=== PATIENT | female | born 2000 | race Two or more races ===

== ENCOUNTER 2018-02-07 01:25 | Emergency (ER) | payer OTHER ==
[~2018-02-07] VITALS: Ht 154.9 cm; Wt 50.8 kg
== END 2018-02-07 06:24 | disposition home or self-care (01) ==
LOC: ER 01:25
DX: O98.511 Other viral diseases complicating pregnancy, first trimester (principal); B34.9 Viral infection, unspecified; E86.0 Dehydration; Z34.01 Encounter for supervision of normal first pregnancy, first trimester

== ENCOUNTER 2018-07-24 17:39 | Inpatient (IN) | payer OTHER ==
[~2018-07-24] VITALS: Ht 154.9 cm; Wt 65.8 kg
[2018-07-24] MEDS ORDERED: PRENATAL ONE T1 EACH PO (19:33)
[2018-07-24] MEDS ORDERED: MACROBID 100 M100 MG PO (19:34)
== END 2018-08-01 15:41 | DRG 807 ==
LOC: LDR 17:39 → OB/GYN 07-26 11:35
PROVIDERS: ADMIT Specialist
PROC: 4A1HXCZ Monitoring of Products of Conception, Cardiac Rate, External Approach (ICD-10-PCS; 2018-07-24)
PROC: 10E0XZZ Delivery of Products of Conception, External Approach (ICD-10-PCS; principal; 2018-07-30)
PROC: 0W8NXZZ Division of Female Perineum, External Approach (ICD-10-PCS; 2018-07-30)
DX: O80 Encounter for full-term uncomplicated delivery (principal); Z37.0 Single live birth; Z3A.37 37 weeks gestation of pregnancy

== ENCOUNTER 2021-08-31 15:39 | Outpatient (CLI) | payer OTHER ==
[~2021-08-31 15:39] MED LIST: MACROBID 100 M100 MG PO; PRENATAL ONE T1 EACH PO
== END 2021-08-31 16:52 | disposition home or self-care (01) ==
LOC: PRENATAL 15:39
PROVIDERS: ATTEND Obstetrics & Gynecology Maternal & Fetal Medicine
DX: O35.0XX0 Maternal care for (suspected) central nervous system malformation in fetus, not applicable or unspecified (principal); O35.3XX0 Maternal care for (suspected) damage to fetus from viral disease in mother, not applicable or unspecified; O14.90 Unspecified pre-eclampsia, unspecified trimester; Z3A.20 20 weeks gestation of pregnancy

== ENCOUNTER 2021-11-24 15:49 | Outpatient (CLI) | payer OTHER | END 2021-11-24 16:28 | disposition home or self-care (01) | LOC: PRENATAL 15:49 | PROVIDERS: ATTEND Obstetrics & Gynecology Maternal & Fetal Medicine | DX: O26.849 Uterine size-date discrepancy, unspecified trimester (principal); O36.8199 Decreased fetal movements, unspecified trimester, other fetus; O14.90 Unspecified pre-eclampsia, unspecified trimester; Z3A.32 32 weeks gestation of pregnancy; Z88.0 Allergy status to penicillin ==